=== PATIENT | male | born 1980 | race Caucasian/White ===

== ENCOUNTER 2017-12-30 10:33 | Emergency (ER) | payer OTHER ==
[2017-12-30 10:38] VITALS: BP 146/83
--- NOTE | 2017-12-30 11:40 | EDPHY ---
H & P Stated Complaint: decreased hearing on L -pt concerned rx to tadalafil started 1 wk ago Time Seen by Provider: 12/30/17 11:37 HPI/ROS: HPI: This is a 37-year-old male who presents with Chief Complaint: decreased hearing on L -pt concerned rx to tadalafil started 1 wk ago Location: Left ear Quality: Decreased hearing Duration: Since Sunday, approximately 5 days ago Signs and Symptoms: no fever, no nausea, no vomiting, no diarrhea, no urinary symptoms, no chest pain, no shortness of breath, no wheezing, no cough, no sore throat, no neck stiffness, no joint pain, no swollen glands, no ear pain, no rash Timing: Sudden onset Severity: Mild Context: Patient reports that he took Cialis on Sunday and Sunday and then on Sunday started to developed decreased hearing in his left ear. Reports that there is no difference to high pitched or low pitched sounds. Patient reports that he has not taking the Cialis since did decreased hearing. He reports it as sounding "muffled." Denies any fever/recent upper respiratory symptoms. Modifying Factors: None Comment: ROS: A comprehensive 10 system review of systems is otherwise negative aside from elements mentioned in the history of present illness. MEDICAL/SURGICAL/SOCIAL HISTORY: Medical history: Generally healthy. Does not take any regular medications. Surgical history: Denies Social history: Never smoked. Family history noncontributory. CONSTITUTIONAL: Polite and cooperative slightly anxious adult white male, awake and alert, no obvious distress HEENT: Atraumatic and normocephalic, PERRL, EOMI. Nares patent; no rhinorrhea; no nasal mucosal edema. Tympanic membranes clear; no lesions, no vesicles. Oropharynx clear, no exudate and moist pink mucosa. Airway patent. No lymphadenopathy. No meningismus. [place] and [place] within normal limits Cardiovascular: Normal S1/S2, regular rate, regular rhythm, without murmur rub or gallop. PULMONARY/CHEST: Symmetrical and nontender. Clear to auscultation bilaterally. Good air movement. No accessory muscle usage. ABDOMEN: Soft, nondistended, nontender, no rebound, no guarding, no peritoneal signs, no masses or organomegaly. No CVAT. EXTREMITIES: 2/2 pulses, strength 5/5, no deformities, no clubbing, no cyanosis or edema. NEUROLOGICAL: no focal neuro deficits. GCS 15. SKIN: Warm and dry, no erythema. no rash. Good capillary refill. Source: Patient Exam Limitations: No limitations - Medical/Surgical History Hx Asthma: No Hx Chronic Respiratory Disease: No Hx Diabetes: No Hx Cardiac Disease: No Hx Renal Disease: No Hx Cirrhosis: No Hx Alcoholism: No Hx HIV/AIDS: No Hx Splenectomy or Spleen Trauma: No Other PMH: denies - Social History Smoking Status: Never smoked Constitutional: Initial Vital Signs Temperature (C) 36.7 C 12/30/17 10:35 Heart Rate 70 12/30/17 10:35 Respiratory Rate 16 12/30/17 10:35 Blood Pressure 146/83 H 12/30/17 10:35 O2 Sat (%) 97 12/30/17 10:35 O2 Delivery Mode Room Air Allergies/Adverse Reactions: No Known Allergies Allergy (Unverified 12/30/17 10:35) Home Medications: Medication Instructions Recorded Tadalafil 12/30/17 Medical Decision Making ED Course/Re-evaluation: Ear exam is benign. Will refer to ENT for further evaluation and likely audiogram. No signs of otitis media, sinusitis, shingles, Meniere's disease, Prkaash's palsy. Decreased hearing likely due to Cialis usage. No LOC. No neurological deficits to warrant emergent MRI of the brain in the ER. This patient was seen under the supervision of my secondary supervising physician. I evaluated care for this patient independently. Discussed this patient with Dr. Fletcher. Differential Diagnosis: Differential diagnosis includes but is not limited to adverse drug effect. Departure - Departure Disposition: Home, Routine, Self-Care Clinical Impression: Medication side effect, Decreased hearing of left ear Condition: Good Instructions: Hearing Loss (ED) Additional Instructions: Please refrain from using Cialis. Follow-up with ENT. Call the office tomorrow for follow-up appointment in the next 1-3 days. Follow-Up: Please follow-up as noted above. Follow-up sooner if your condition worsens or if you develop any new problems. Call as soon as possible for an appointment. Be clear when you call for an appointment that this is an Emergency Department follow-up. Contact the Emergency Department if you have trouble arranging follow-up care. Our referrals are not based on your insurance network. When time allows, contact your insurance carrier to verify the referral physician is in your plan. If not, get a referral for an in-network mgr. Referrals: Maikel Santos MD [Medical Doctor] - As per Instructions
== END 2017-12-30 12:10 | disposition home or self-care (01) ==
DX: H91.92 Unspecified hearing loss, left ear (principal); T46.7X5A Adverse effect of peripheral vasodilators, initial encounter